=== PATIENT | female | born 1990 | race Two or more races ===

== ENCOUNTER → 2019-01-07 | Outpatient (CLI) | payer OTHER ==
--- NOTE | 2019-01-07 11:06 | REP ---
Left ankle series: Four views. History: Injury of the left ankle. Findings: Ankle mortise is intact. Mild anterior soft tissue swelling is seen. No fracture is noted. Bones, joints and soft tissues are otherwise unremarkable. Impression: No fracture noted. Anterior soft tissue swelling. Otherwise negative. Electronically Signed by Karan Soto MD 01/07/2019 10:58 A
== END ==
LOC: M LRY 10:21
PROVIDERS: ATTEND Physician Assistant
DX: S99.912A Unspecified injury of left ankle, initial encounter (principal); X58.XXXA Exposure to other specified factors, initial encounter; Y92.89 Other specified places as the place of occurrence of the external cause
CPT/HCPCS: 73610; G0463

== ENCOUNTER → 2019-02-01 | Outpatient (REF) | payer OTHER ==
[~2019-02-01] MED LIST: ACET-683 PO; IBUP80TA PO
[2019-02-01 18:18] LABS: CHLAMYDIA DNA AMPLIFICATION NEGATIVE (NEGATIVE); GC DNA AMPLIFICATION NEGATIVE (NEGATIVE)
== END ==
LOC: M SFHCLERA 10:10
PROVIDERS: ATTEND Physician Assistant
DX: R10.32 Left lower quadrant pain (principal)
CPT/HCPCS: 81002; 81025; 87086; 87661; G0463

== ENCOUNTER 2019-02-02 15:46 | Emergency (ER) | payer OTHER ==
[~2019-02-02] VITALS: Ht 162.6 cm; Wt 83.2 kg
[2019-02-02] MEDS ORDERED: ACET-683 PO (15:55)
[2019-02-02 16:36] LABS: BASO % 0.5 % (0.0-1.0); EOS # 0.3 10^3/uL (0.0-0.50); HEMOGLOBIN 11.7 g/dl (12.0-15.5); LYMPH # 3.1 10^3/uL (1.5-6.5); LYMPH % 41.4 % (24.0-44.0); MEAN CORPUSCULAR HEMOGLOBIN 26.5 pg (27.0-33.0); MEAN CORPUSCULAR HGB CONC 31.6 g/dl (32.0-36.5); MEAN CORPUSCULAR VOLUME 83.7 fl (80.0-96.0); MONO # 0.6 10^3/uL (0.0-0.8); MONO % 7.7 % (0.0-5.0); NEUTROPHILS # 3.5 10^3/uL (1.8-7.7); NEUTROPHILS % 46.3 % (36.0-66.0); PLATELET COUNT, AUTOMATED 326 10^3/uL (150-450); RED BLOOD COUNT 4.42 10^6/uL (4.00-5.40); WHITE BLOOD COUNT 7.5 10^3/uL (4.0-10.0)
[2019-02-02 17:02] LABS: ALBUMIN 4.2 GM/DL (3.2-5.2); ALT/SGPT 25 U/L (12-78); BILIRUBIN,DIRECT < 0.1 MG/DL (0.0-0.2); BILIRUBIN,TOTAL 0.3 MG/DL (0.2-1.0); BLOOD UREA NITROGEN 8 MG/DL (7-18); CALCIUM LEVEL 8.9 MG/DL (8.5-10.1); CARBON DIOXIDE LEVEL 32 MEQ/L (21-32); CHLORIDE LEVEL 103 MEQ/L (98-107); CREATININE FOR GFR 0.75 MG/DL (0.55-1.30); GLOMERULAR FILTRATION RATE > 60.0 (>60); GLUCOSE, FASTING 91 MG/DL (70-100); LIPASE 193 U/L (73-393); POTASSIUM SERUM 4.1 MEQ/L (3.5-5.1); SODIUM LEVEL 139 MEQ/L (136-145); TOTAL PROTEIN 8.3 GM/DL (6.4-8.2)
[2019-02-02 17:35] LABS: HCG, SERUM QUALITATIVE NEGATIVE (NEGATIVE)
--- NOTE | 2019-02-02 19:44 | REPVR ---
EXAM: US Pelvis, Transvaginal EXAM DATE/TIME: 02/02/2019 6:50 PM CLINICAL HISTORY: 28 years old, female; Pelvic pain; Additional info: Left lower abdominal pain TECHNIQUE: Imaging protocol: Real-time transvaginal pelvic ultrasound with image documentation. Transvaginal imaging was used for better evaluation of the endometrium and adnexa. COMPARISON: No relevant prior studies available. FINDINGS: Uterus/cervix: Uterus measures 7.3 x 4.6 x 4.8 cm. Endometrial echocomplex measures 4.9 mm. Trace fluid/blood products in the endocervical canal. Right adnexa: Right ovary measures 2.6 x 1.7 x 2.7 cm. Resistive index 0.44. Normal flow. Left adnexa: Left ovary measures 3.4 x 1.6 x 2.8 cm. Resistive index 0.51. Normal flow. Bladder: Empty bladder. Bladder cannot be evaluated with this probe. Free fluid: None. IMPRESSION: No significant abnormalities demonstrated. Electronically signed by: Garret Maddox On 02/02/2019 19:44:13 PM
[2019-02-02] MEDS ORDERED: IBUP80TA PO (19:47)
[2019-02-02 19:53] VITALS: BP 124/77
[2019-02-02] MEDS ORDERED: IBUPROFEN 800 MG TAB PO ONE (20:00)
== END 2019-02-02 19:56 | disposition home or self-care (01) ==
LOC: M ED 15:46
DX: N94.6 Dysmenorrhea, unspecified (principal)

== ENCOUNTER 2019-09-28 12:36 | Emergency (ER) | payer OTHER ==
[~2019-09-28] VITALS: Ht 162.6 cm; Wt 84.7 kg
[2019-09-28] MEDS ORDERED: IRON18TA PO (12:48)
[2019-09-28] MEDS ORDERED: PREN29TA4 PO (12:48)
[2019-09-28 13:02] LABS: BASO % 0.6 % (0.0-1.0); EOS # 0.2 10^3/uL (0.0-0.5); EOS % 2.4 % (0.0-3.0); HEMATOCRIT 39.3 % (36.0-47.0); HEMOGLOBIN 12.4 g/dl (12.0-15.5); LYMPH # 2.4 10^3/uL (1.5-5.0); LYMPH % 33.2 % (24.0-44.0); MEAN CORPUSCULAR HEMOGLOBIN 26.7 pg (27.0-33.0); MEAN CORPUSCULAR HGB CONC 31.6 g/dl (32.0-36.5); MEAN CORPUSCULAR VOLUME 84.5 fl (80.0-96.0); MONO # 0.5 10^3/uL (0.0-0.8); MONO % 7.6 % (0.0-5.0); NEUTROPHILS % 55.9 % (36.0-66.0); PLATELET COUNT, AUTOMATED 296 10^3/uL (150-450); RED BLOOD COUNT 4.65 10^6/uL (4.00-5.40); WHITE BLOOD COUNT 7.1 10^3/uL (4.0-10.0)
[2019-09-28] MEDS ORDERED: NS 1,000 ML IV ONE (13:15)
--- NOTE | 2019-09-28 14:08 | REP ---
PELVIC ULTRASOUND: Real-time sonographic evaluation of the pelvis performed utilizing transabdominal and endovaginal technique. Uterus measures 10.1 x 6.5 x 5.8 cm. Endometrial thickness is 15 mm. No intrauterine gestational sac or is seen. Oval cystic structure in the cervix could represent a gestational sac at that location and in progress. There are no definite internal contents. Alternatively this could represent focal fluid in the cervix. Maximum diameter is 1.8 cm. Right ovary measures 2.6 x 1.2 x 3.0 cm. Left ovary measures 3.8 x 2.2 x 3.6 cm. Complex septated cystic structure of the left ovary may represent a corpus luteum 1.9 x 1.3 x 1.8 cm. There is no torsion bilaterally of either ovary with duplex Doppler evaluation. No significant free fluid is seen. Electronically Signed by Chuck Olivo MD 09/28/2019 05:39 P
[2019-09-28 14:11] LABS: BLOOD UREA NITROGEN 8 MG/DL (7-18); CALCIUM LEVEL 9.6 MG/DL (8.5-10.1); CARBON DIOXIDE LEVEL 27 MEQ/L (21-32); CHLORIDE LEVEL 103 MEQ/L (98-107); CREATININE FOR GFR 0.67 MG/DL (0.55-1.30); GLOMERULAR FILTRATION RATE > 60.0 (>60); GLUCOSE, FASTING 85 MG/DL (70-100); HCG, SERUM QUANTITATIVE 2171 MIU/ML; POTASSIUM SERUM 3.8 MEQ/L (3.5-5.1); SODIUM LEVEL 137 MEQ/L (136-145)
[2019-09-28 14:17] VITALS: BP 109/60
[2019-09-28] MEDS ORDERED: IBUP80TA PO (16:55)
[2019-09-28] MEDS ORDERED: IRON65TA2 PO (16:55)
== END 2019-09-28 14:27 | disposition home or self-care (01) ==
LOC: M ED 12:36
DX: O03.9 Complete or unspecified spontaneous abortion without complication (principal); Z79.899 Other long term (current) drug therapy

== ENCOUNTER 2019-09-28 15:04 | Observation (INO) | payer OTHER ==
[~2019-09-28] VITALS: Ht 162.6 cm; Wt 87.3 kg
[2019-09-28] VITALS (11 sets, daily range): BP systolic 104–121; BP diastolic 55–73
[~2019-09-28 15:04] MED LIST changes: +IRON18TA PO; +PREN29TA4 PO
[2019-09-28] MEDS ORDERED: NS 1,000 ML IV ONE (15:30)
[2019-09-28 15:49] LABS: HEMATOCRIT 29.5 % (36.0-47.0); MEAN CORPUSCULAR HEMOGLOBIN 27.4 pg (27.0-33.0); MEAN CORPUSCULAR HGB CONC 32.2 g/dl (32.0-36.5); PLATELET COUNT, AUTOMATED 222 10^3/uL (150-450); RED BLOOD COUNT 3.47 10^6/uL (4.00-5.40); WHITE BLOOD COUNT 8.2 10^3/uL (4.0-10.0)
[2019-09-28 15:52] LABS: HEMOGLOBIN 9.5 g/dl (12.0-15.5)
[2019-09-28 16:17] LABS: BLOOD UREA NITROGEN 7 MG/DL (7-18); CALCIUM LEVEL 8.3 MG/DL (8.5-10.1); CARBON DIOXIDE LEVEL 23 MEQ/L (21-32); CHLORIDE LEVEL 108 MEQ/L (98-107); CREATININE FOR GFR 0.59 MG/DL (0.55-1.30); GLOMERULAR FILTRATION RATE > 60.0 (>60); GLUCOSE, FASTING 98 MG/DL (70-100); POTASSIUM SERUM 4.1 MEQ/L (3.5-5.1); SODIUM LEVEL 140 MEQ/L (136-145)
[2019-09-28] MEDS: miSOPROStol 200 MCG TAB (S0191) PO SCH ×4 (16:30→23:46)
[2019-09-28] MEDS ORDERED: NS 1,000 ML IV SCH (16:38)
[2019-09-28] MEDS ORDERED: IBUP80TA PO (16:55)
[2019-09-28] MEDS ORDERED: IRON65TA2 PO (16:55)
[2019-09-28] MEDS ORDERED: NS 1,000 ML IV STA (17:00)
--- NOTE | 2019-09-28 17:15 | HPEPDOC ---
General Date of Admission Sep 28, 2019 at 15:05 Date of Service: Sep 28, 2019 Attending Physician: MURIEL STINSON DO Chief Complaint The patient is a 28-year-old present to ED with syncopal episode from heavy vaginal bleeding. She was diagnosed with threatened AB earlier during the day. Patient reports she has been having significant bleeding since 1100. denies significant cramping. feeling dizziness while laying on bed. Source: Family Exam Limitations: No limitations Associated Symptoms: Syncope, Weakness, Hypotension, Dizziness Home Medications Scheduled Ferrous Sulfate (Iron) 325 Mg Tablet, 325 MG PO Q2D, (Reported) Prenat 115/Iron Fum/Folic/Dss ( 19 Tablet) 1 Each Tablet, 1 TAB PO DAILY, (Reported) Scheduled PRN Ibuprofen (Ibuprofen) 800 Mg Tablet, 400 MG PO Q6H PRN for ABDOMINAL PAIN, (Reported) Allergies Coded Allergies: No Known Drug Allergies (Verified Allergy, Unknown, 02/02/19) Past Medical History Medical History denies Surgical History T&A Family History Significant Family History: No pertinent family hx Social History * Smoker: Denies Alcohol: Denies Drugs: denies A-FIB/CHADSVASC A-FIB History Current/History of A-Fib/PAF?: No Current PO Anticoag Therapy: No Age/Risk Factor Scoring CHADSVASC: CHADSVASC Response (Comments) Value Age Risk Factor Age < 65 years old 0 Gender Risk Factor Female 1 Hx of CHF No 0 Hx of HTN No 0 Hx of Stroke/TIA/or VTE No 0 Hx of Diabetes No 0 Hx of Vascular Disease No 0 Total 1 Treatment Treatment ordered: NONE Reason Anticoagulant not given: Not indicated/[id number] Review of Systems Cardiovascular: Reports: Palpitations; Denies: Chest Pain, Orthopnea, Paroxysmal Noc. Dyspnea, Edema, Lt Headedness, Other Symptoms Gastrointestinal: Denies: Nausea, Vomiting, Abdominal Pain, Diarrhea, Constipation, Melena, Hematochezia, Other Symptoms Genitourinary: Denies: Dysuria, Frequency, Incontinence, Hematuria, Retention, Other Symptoms Hematologic: Reports: Bleeding Excessively; Denies: Bruising, Petecchia, Purpura, Enlarged Lymph Nodes, Other Hematologic Musculoskeletal: Denies: Neck Pain, Back Pain, Shoulder Pain, Arm Pain, Hand Pain, Leg Pain, Foot Pain, Joint Pain, Muscle Pain, Spasms, Other Symptoms Physical Examination General Exam: Positive: Alert, Cooperative, No Acute Distress, Mild Distress, Moderate Distress, Severe Distress, Other Chest Exam: Positive: Clear to auscultation, Normal air movement, Rales, Rhonchi, Wheezing, Diminished, Other Heart Exam: Positive: Rate Normal, Tachycardic (90's-110's), Bradycardic, Regular Rhythm, Irregular Rhythm, Normal S1, Normal S2, Gallops, Murmurs, Rubs, Other Abdomen Exam: Negative: Normal bowel sounds, BS Hyperactive, BS Hypoactive, Soft, Tenderness, Hepatospenomegaly, Mass, Hernia, Other Extremity Exam: Negative: Clubbing, Cyanosis, Edema, Normal pulses, Tenderness, Swelling, Other Skin Exam: Positive: Other skin issue (pale appearing) Other physical findings brush hand: ED nurse assistance nurse: brandie speculum exam: significant blood in vault cleared. products of conception at cervical os, removed. cervix visually 1cm, bleeding stopped bedside US with pharmacologist shows lower uterine segment blood clot with stripe measuring ~ 2cm. Vital Signs Vital Signs Date Time Temp Pulse Resp B/P (MAP) Pulse Ox O2 Delivery O2 Flow Rate FiO2 09/28/19 15:11 97.1 93 18 128/73 (91) 100 Room Air Laboratory Data Labs 24H Laboratory Tests 2 09/28/19 15:14: Bedside Glucose (Misc Panel) 97 09/28/19 15:35: Nucleated Red Blood Cells % (auto) 0.0, Anion Gap 9, Glomerular Filtration Rate > 60.0, Calcium Level 8.3L CBC/BMP Laboratory Tests 09/28/19 15:35 Assessment/Plan patient is a 28 yo with spontaneous miscarriage, significant symptomatic anemia from heavy bleeding. Bleeding subsided after products of conception removed from cervix. Cervix visually about 1 cm dilated at this time. No active bleeding. Discussed with patient admission for blood transfusion and observation since she lost much blood in a sort amount of time. Patient counseled for blood transfusion and consent form signed. Discussed possible D&C if she starts bleeding heavily again. plan: admit to [facility] for observation NPO give 2 units PRBC LR 125cc/hr cytotec 800mcg Buccal x 1 vitals q 4hrs repeat cbc after blood transfusion tissue sent as products of conception disposition pending status of bleeding. Plan / VTE VTE Prophylaxis Ordered?: No Plan IVF: Initiate Diet: Make NPO Activity: Continue Current MURIEL STINSON DO Sep 28, 2019 17:14
--- NOTE | 2019-09-28 17:36 | REP ---
Transvaginal pelvic sonography: Bedside exam requested. History: Vaginal bleeding. Comparison is made with study done earlier on this date. Findings: Repeat transvaginal scanning demonstrate retroverted uterus with complex material in the endometrium consistent with blood. This is thickest at the lower uterine segment area where there is a anechoic fluid component as well. No normal gestational sac is visible. Findings are similar to the prior study. Electronically Signed by Karan Soto MD 09/28/2019 06:19 P
[2019-09-28] MEDS: LR 1,000 ML IV SCH ×2 (19:30→22:52)
[2019-09-28] MEDS: METHYLERGONOVINE MALEATE 0.2 MG TAB PO SCH ×2 (23:38→23:44)
[2019-09-29 02:00] VITALS: BP 107/58
[2019-09-29 03:01] LABS: BASO # 0.1 10^3/uL (0.0-0.2); BASO % 0.5 % (0.0-1.0); EOS # 0.2 10^3/uL (0.0-0.5); EOS % 1.7 % (0.0-3.0); HEMATOCRIT 30.1 % (36.0-47.0); HEMOGLOBIN 9.8 g/dl (12.0-15.5); LYMPH # 2.5 10^3/uL (1.5-5.0); LYMPH % 22.5 % (24.0-44.0); MEAN CORPUSCULAR HEMOGLOBIN 26.9 pg (27.0-33.0); MEAN CORPUSCULAR HGB CONC 32.6 g/dl (32.0-36.5); MEAN CORPUSCULAR VOLUME 82.7 fl (80.0-96.0); MONO # 0.8 10^3/uL (0.0-0.8); MONO % 7.4 % (0.0-5.0); NEUTROPHILS # 7.4 10^3/uL (1.5-8.5); NEUTROPHILS % 67.7 % (36.0-66.0); PLATELET COUNT, AUTOMATED 203 10^3/uL (150-450); RED BLOOD COUNT 3.64 10^6/uL (4.00-5.40); WHITE BLOOD COUNT 10.9 10^3/uL (4.0-10.0)
[2019-09-29] MEDS: METHYLERGONOVINE MALEATE 0.2 MG TAB PO SCH ×2 (04:08→07:53)
[2019-09-29] MEDS: miSOPROStol 200 MCG TAB (S0191) PO SCH ×2 (04:08→07:55)
[2019-09-29] MEDS: LR 1,000 ML IV SCH (05:41)
[2019-09-29 06:00] VITALS: BP 115/58
--- NOTE | 2019-09-29 07:06 | IPNPDOC ---
Text Note Date of Service The patient was seen on 09/29/19. NOTE patient is a 28 yo s/u spontaneous miscarriage HD #2. patient as adm itted for symptomatic anemia secondary significant acute vaginal bleeding form miscarriage. she received two units PRBC transfusion on admission. overnight uneventful. patient reports occasional clots. denies fever/cramping. patient is hungry. vitals: normal NAD, ao x 3 cta s w/r/r s1s2 s m/g/c abd: nd, soft, nt, normal bs LE: no edema/erythema/tenderness skin: pink a/p patient clinically improved today, start regular diet. discharge home after breakfast. VS,Fishbone, I+O VS, Fishbone, I+O Laboratory Tests 09/28/19 15:35 09/29/19 02:55 Vital Signs Date Time Temp Pulse Resp B/P (MAP) Pulse Ox O2 Delivery O2 Flow Rate FiO2 09/29/19 02:00 97.8 90 18 107/58 (74) 98 Room Air I&O- Last 24 Hours up to 6 AM 09/29/19 06:00 Intake Total 5777 ml Output Total 1325 ml Balance 4452 ml MURIEL STINSON DO Sep 29, 2019 07:06
--- NOTE | 2019-09-29 07:13 | DS.PDOC ---
Discharge Summary General Date of Admission Sep 28, 2019 at 15:05 Date of Discharge sep 29, 2019 Attending Physician: MURIEL HAGAN DO Discharge Summary ADMITTING DIAGNOSES: 1. spontaneous miscarriage 2. severe anemia DISCHARGE DIAGNOSES: 1. spontaneous miscarriage 2. anemia COMPLICATIONS/CHIEF COMPLAINT: Anemia,Spontaneous Miscarriage. HOSPITAL COURSE: Patient admitted for symptomatic anemia. She received two units PRBC transfused. Remainder of her stay uncomplicated. DISCHARGE MEDICATIONS: none ALLERGIES: Please see below. LABORATORY DATA: Please see below. ACTIVITY: As tolerated. DIET: regular DISCHARGE: home DISCHARGE INSTRUCTIONS: 1. Return to ED with fever, severe pain, heavy bleeding requiring changing pad every 30minutes or causing dizziness. DISCHARGE CONDITION: Stable FOLLOW UP INSTRUCTIONS: f/u in 1 week with OB clinic with Dr. Hagan TIME SPENT ON DISCHARGE: Greater than 20 minutes. Vital Signs/I&Os Vital Signs Date Time Temp Pulse Resp B/P (MAP) Pulse Ox O2 Delivery O2 Flow Rate FiO2 09/29/19 02:00 97.8 90 18 107/58 (74) 98 Room Air I&O- Last 24 Hours up to 6 AM 09/29/19 06:00 Intake Total 5777 ml Output Total 1325 ml Balance 4452 ml Laboratory Data Labs 24H Laboratory Tests 2 09/28/19 15:14: Bedside Glucose (Misc Panel) 97 09/28/19 15:35: Nucleated Red Blood Cells % (auto) 0.0, Anion Gap 9, Glomerular Filtration Rate > 60.0, Calcium Level 8.3L 09/29/19 02:55: Nucleated Red Blood Cells % (auto) 0.0, Immature Granulocyte % (Auto) 0.2, Neutrophils (%) (Auto) 67.7H, Lymphocytes (%) (Auto) 22.5L, Monocytes (%) (Auto) 7.4H, Eosinophils (%) (Auto) 1.7, Basophils (%) (Auto) 0.5, Neutrophils # (Auto) 7.4, Lymphocytes # (Auto) 2.5, Monocytes # (Auto) 0.8, Eosinophils # (Auto) 0.2, Basophils # (Auto) 0.1, Human Chorionic Gonadotropin, Quant 840 CBC/BMP Laboratory Tests 09/28/19 15:35 09/29/19 02:55 FSBS Laboratory Tests Test 09/28/19 15:14 Range/Units Bedside Glucose (Misc Panel) 97 70-105 MG/DL Discharge Medications Scheduled Ferrous Sulfate (Iron) 325 Mg Tablet, 325 MG PO Q2D, (Reported) Prenat 115/Iron Fum/Folic/Dss ( 19 Tablet) 1 Each Tablet, 1 TAB PO DAILY, (Reported) Scheduled PRN Ibuprofen (Ibuprofen) 800 Mg Tablet, 400 MG PO Q6H PRN for ABDOMINAL PAIN, (Reported) Allergies Coded Allergies: No Known Drug Allergies (Verified Allergy, Unknown, 02/02/19) MURIEL HAGAN DO Sep 29, 2019 07:13
[2019-09-29 08:44] LABS: HEMATOCRIT 30.5 % (36.0-47.0); HEMOGLOBIN 10.1 g/dl (12.0-15.5); MEAN CORPUSCULAR HEMOGLOBIN 27.4 pg (27.0-33.0); MEAN CORPUSCULAR HGB CONC 33.1 g/dl (32.0-36.5); MEAN CORPUSCULAR VOLUME 82.7 fl (80.0-96.0); PLATELET COUNT, AUTOMATED 223 10^3/uL (150-450); RED BLOOD COUNT 3.69 10^6/uL (4.00-5.40); WHITE BLOOD COUNT 9.8 10^3/uL (4.0-10.0)
[2019-09-29] MEDS ORDERED: INFLUENZA QUADRIVALENT PF VACCINE 0.5ML SYRINGE (90686) IM ONE (09:00)
[2019-09-30] MEDS ORDERED: VITA500C24 PO (19:45)
[2019-10-01] MEDS ORDERED: ceFAZolin 1GM INJ (J0690 PER 500MG) As Ordered ONE (00:25)
[2019-10-01] MEDS ORDERED: ACETAMINOPHEN 650 MG SUPP As Ordered ONE (00:25)
== END 2019-09-29 10:50 | disposition home or self-care (01) ==
LOC: M ED 15:04 → M ED INP 15:05 → ENRESERVTM 17:25 → ENRESERVDT 17:25 → M MSPAV 19:00
PROVIDERS: ADMIT Obstetrics & Gynecology; ATTEND Obstetrics & Gynecology
DX: O03.9 Complete or unspecified spontaneous abortion without complication (principal); D62 Acute posthemorrhagic anemia; R42 Dizziness and giddiness; Z79.899 Other long term (current) drug therapy; Z23 Encounter for immunization
CPT/HCPCS: 36415; 36430; 76801; 76817; 80048; 84702; 85025; 85027; 86850; 86900; 86901; 86920; 88305; 90471; 90686; 93041; 93976; 94760; 96360; 99284; 99285; P9016

== ENCOUNTER 2019-09-30 19:39 | Day surgery (SDC) | payer OTHER ==
[~2019-09-30] VITALS: Ht 162.6 cm; Wt 85.9 kg
[~2019-09-30 19:39] MED LIST changes: +IRON65TA2 PO
[2019-09-30] MEDS ORDERED: VITA500C24 PO (19:45)
[2019-09-30 20:28] LABS: BASO # 0.1 10^3/uL (0.0-0.2); BASO % 0.9 % (0.0-1.0); EOS # 0.5 10^3/uL (0.0-0.5); EOS % 6.4 % (0.0-3.0); HEMATOCRIT 29.9 % (36.0-47.0); HEMOGLOBIN 9.4 g/dl (12.0-15.5); LYMPH # 2.9 10^3/uL (1.5-5.0); LYMPH % 36.5 % (24.0-44.0); MEAN CORPUSCULAR HEMOGLOBIN 26.7 pg (27.0-33.0); MEAN CORPUSCULAR HGB CONC 31.4 g/dl (32.0-36.5); MEAN CORPUSCULAR VOLUME 84.9 fl (80.0-96.0); MONO # 0.9 10^3/uL (0.0-0.8); MONO % 10.8 % (0.0-5.0); NEUTROPHILS # 3.5 10^3/uL (1.5-8.5); PLATELET COUNT, AUTOMATED 211 10^3/uL (150-450); RED BLOOD COUNT 3.52 10^6/uL (4.00-5.40); WHITE BLOOD COUNT 7.8 10^3/uL (4.0-10.0)
[2019-09-30] MEDS ORDERED: NS 1,000 ML IV ONE (20:30)
[2019-09-30 20:42] LABS: ALBUMIN 4.1 GM/DL (3.2-5.2); ALT/SGPT 28 U/L (12-78); BILIRUBIN,DIRECT 0.1 MG/DL (0.0-0.2); BILIRUBIN,TOTAL 0.2 MG/DL (0.2-1.0); CPK CREATINE PHOSPHOKINASE 72 U/L (26-192); LIPASE 139 U/L (73-393); MB/CK RELATIVE INDEX 1.39 (< OR =4); TOTAL PROTEIN 7.4 GM/DL (6.4-8.2); TROPONIN I < 0.02 NG/ML (< 0.10)
[2019-09-30 20:51] LABS: BLOOD UREA NITROGEN 5 MG/DL (7-18); CALCIUM LEVEL 9.3 MG/DL (8.5-10.1); CARBON DIOXIDE LEVEL 26 MEQ/L (21-32); CHLORIDE LEVEL 106 MEQ/L (98-107); CREATININE FOR GFR 0.71 MG/DL (0.55-1.30); GLOMERULAR FILTRATION RATE > 60.0 (>60); GLUCOSE, FASTING 100 MG/DL (70-100); POTASSIUM SERUM 3.5 MEQ/L (3.5-5.1); SODIUM LEVEL 140 MEQ/L (136-145)
--- NOTE | 2019-09-30 21:44 | REPVR ---
PROCEDURE INFORMATION: Exam: US Pelvis Complete, Transabdominal Exam date and time: 09/30/2019 8:55 PM Age: 28 years old Clinical indication: Pelvic pain; Additional info: Recent miscarriage, eval for rpoc TECHNIQUE: Imaging protocol: Real-time transabdominal pelvic ultrasound with image documentation. Complete exam. COMPARISON: US PELVIC NON-OB COMPLETE 2019-02-02 18:22 FINDINGS: Uterus/cervix: Heterogeneous irregular endometrium suggesting retained products of conception. Retroverted uterus measuring 9.6 x 5.7 x 7.2 cm. 2 cm thick endometrium. Right adnexa: Unremarkable right ovary. Left adnexa: Unremarkable left ovary. Free fluid: None. Bladder: Normal. IMPRESSION: Heterogeneous irregular endometrium suggesting retained products of conception. Electronically signed by: Jarek Tracy On 09/30/2019 21:43:45 PM
[2019-10-01] VITALS (7 sets, daily range): BP systolic 90–115; BP diastolic 49–66
[2019-10-01] MEDS ORDERED: MIDAZOLAM INJ 2 MG/2 ML VIAL (J2250) As Ordered ONE (00:04)
[2019-10-01] MEDS ORDERED: LIDOCAINE 2% INJ 100 MG/5 ML SDV (FOR ANES.) As Ordered ONE (00:04)
[2019-10-01] MEDS ORDERED: propofoL 200 MG/20 ML VIAL As Ordered ONE ×2 (00:04→01:03)
[2019-10-01] MEDS ORDERED: fentaNYL 100 MCG/2 ML INJECTION (J3010) As Ordered ONE (00:04)
[2019-10-01] MEDS ORDERED: CHLOROPROCAINE 2 % INJ PRES.FREE 20 ML VIAL (J2400) As Ordered ONE (00:15)
[2019-10-01] MEDS ORDERED: ACETAMINOPHEN 650 MG SUPP As Ordered ONE (00:27)
[2019-10-01] MEDS ORDERED: KETOROLAC 60 MG/2 ML VIAL (J1885) As Ordered ONE (00:43)
[2019-10-01] MEDS ORDERED: ONDANSETRON 4MG/2ML VIAL (J2405) As Ordered ONE (00:43)
[2019-10-01] MEDS ORDERED: PHENYLephrine HCL 500 MCG/5 ML (100MCG/ML) SYRINGE (J2370) As Ordered ONE (00:50)
[2019-10-01] MEDS ORDERED: OXYTOCIN INJ 10 UNITS/ML VIAL (J2590) As Ordered ONE (01:07)
[2019-10-01] MEDS ORDERED: PERCOCET 5MG/325MG TAB PO PRN (01:30)
[2019-10-01] MEDS ORDERED: MEPERIDINE INJ 25 MG/ML VIAL (J2175) IV PRN (01:30)
[2019-10-01] MEDS ORDERED: fentaNYL 100 MCG/2 ML INJECTION (J3010) IV PRN (01:30)
[2019-10-01] MEDS ORDERED: METOCLOPRAMIDE INJ 10MG/2ML VIAL (J2765) IV PRN (01:30)
[2019-10-01] MEDS ORDERED: LR 1,000 ML IV SCH (01:30)
[2019-10-01] MEDS ORDERED: ONDANSETRON 4MG/2ML VIAL (J2405) IV PRN (01:30)
[2019-10-01] MEDS ORDERED: KETOROLAC 30 MG/ML VIAL (J1885) IV PRN (07:00)
--- NOTE | 2019-10-01 10:02 | ECGEPIP ---
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
--- NOTE | 2019-10-04 12:26 | HPE ---
DATE OF ADMISSION: 09/30/2019 This lady was seen in emergency 48 hours ago. She had a spontaneous at which time she required 2 units of blood because of being hemodynamically unstable. She came in bleeding and having dizziness. On examination, her blood pressure was 123/63, respirations 16, pulse 100, temperature 97.0. Pelvic Examination: Moderate amount of blood and clots were noted. Os was open. Digital finger was placed. Diagnosis at that time was retained products of conception. After discussing risks and benefits of surgery, the medical and nonmedical indications, and also the risk of further blood transfusion and sepsis, the patient agreed to have a suction curettage under antibiotic umbrella. The rest of the examination was unremarkable. Normocephalic, atraumatic. Neck: Full range of motion. Pupils equal and reactive to light. Distal pulses symmetric. No evidence of deep vein thrombosis (DVT), pulmonary embolism (PE) or superficial phlebitis. Chest is clear bilaterally at bases. No wheezes or rhonchi. No costovertebral angle (CVA) tenderness. Abdomen: Soft. Uterus is slightly enlarged. Vaginal exam is as described. No rashes, lesions or pruritus. No arthralgia or myalgia. No complaint of joint pain. No complaint of cough, wheeze, shortness of breath or dyspnea on exertion. In summary, we have a patient with an incomplete requiring suction curettage pending the operating room availability. Will do this as soon as possible under antibiotic coverage.
--- NOTE | 2019-10-04 21:32 | RO ---
DATE OF PROCEDURE: 10/01/2019 PREOPERATIVE DIAGNOSIS: Retained products conception. POSTOPERATIVE DIAGNOSIS: Retained products of conception. OPERATION PROPOSED: Suction curettage. OPERATION PERFORMED: Suction curettage. SURGEON: Grey Le MD NUCLEAR POWERPLANT SUPERVISOR: ANESTHESIA: General ESTIMATED BLOOD LOSS: 20 mL. DESCRIPTION OF PROCEDURE: After adequate time-out, prepped and draped in the lithotomy position, acetaminophen suppository 1300 mg per rectum. Bladder was drained for 50 mL of clear urine. Weighted speculum in vagina. Single-tooth tenaculum on the anterior lip of the cervix, was already dilated to Hegar 10, sounded to 10 cm, curved suction curette applied. Curettage until the cavity was smooth. Uterus was placed in anatomical position, well contracted under Pitocin. The patient is A positive, does not require RhoGAM.
== END 2019-10-01 08:25 | disposition home or self-care (01) ==
LOC: M ED 19:39 → M SDC 19:40 → ENRESERVDT 10-01 01:23 → ENRESERVTM 10-01 01:23 → M PED 10-01 02:13 → M SDC 10-01 08:25
PROVIDERS: ATTEND Obstetrics & Gynecology
DX: O73.1 Retained portions of placenta and membranes, without hemorrhage (principal); D64.9 Anemia, unspecified; Z79.899 Other long term (current) drug therapy
CPT/HCPCS: 59812; 76830; 76856; 80048; 80076; 82550; 82553; 83690; 84484; 85025; 86850; 86900; 86901; 88305; 93005; 93041; 93976; 96361; 96374; 99285; J1885; J2250; J2370; J2400; J2405; J2590; J3010